=== PATIENT | female | born 1935 | race Caucasian/White ===

== ENCOUNTER 2024-01-18 22:47 | Emergency (ER) | payer MEDICARE ==
[2024-01-19] MEDS ORDERED: Lidocaine 1% (PF) 30 ML VIAL ONE (00:20)
[2024-01-19] MEDS ORDERED: Ibuprofen 200 MG TAB ONE (00:42)
== END 2024-01-19 00:52 | disposition home or self-care (01) ==
LOC: CSHERS 22:47
DX: S01.01XA Laceration without foreign body of scalp, initial encounter (principal); S09.90XA Unspecified injury of head, initial encounter; W19.XXXA Unspecified fall, initial encounter
CPT/HCPCS: 12002; 70450; J2001